=== PATIENT | female | born 1975 | race Caucasian/White ===

== ENCOUNTER → 2021-12-06 | Outpatient (CLI) | payer OTHER ==
[2021-12-07 09:11] LABS: HIV AB/P24 AG SCREEN Non Reactive (Non Reactive)
[2021-12-08 03:08] LABS: CHLAMYDIA TRACHOMATIS, NAA Negative (Negative)
== END | disposition home or self-care (01) ==
LOC: LAB 09:54 → LAB SHORT 09:54
PROVIDERS: Physician Assistant Surgical
DX: Z72.51 High risk heterosexual behavior (principal)
CPT/HCPCS: 86592; 87070; 87205; 87389; 87491; 87591

== ENCOUNTER 2022-03-26 02:44 | Emergency (ER) | payer OTHER ==
[~2022-03-26] VITALS: Ht 177.8 cm; Wt 113.4 kg
[2022-03-26] MEDS ORDERED: NAPROXEN250 M1 PO (03:38)
== END 2022-03-26 03:42 | disposition home or self-care (01) ==
LOC: ER 02:44
DX: M25.511 Pain in right shoulder (principal); Z88.0 Allergy status to penicillin; Z88.5 Allergy status to narcotic agent
CPT/HCPCS: 73030; A9270; J1885

== ENCOUNTER 2022-04-16 10:14 | Emergency (ER) | payer OTHER ==
[~2022-04-16] VITALS: Ht 157.5 cm; Wt 111.1 kg
[~2022-04-16 10:14] MED LIST: NAPROXEN250 M1 PO
[2022-04-16 11:26] LABS: BASOPHILS ABSOLUTE AUTO 0.04 K/mm3 (0.00-0.23); BASOPHILS PERCENT AUTO 0 % (0-2); EOSINOPHILS ABSOLUTE AUTO 0.17 K/mm3 (0.00-0.68); EOSINOPHILS PERCENT AUTO 2 % (0-6); Hematocrit 40.1 % (33.0-51.0); Hemoglobin 12.5 g/dL (11.5-16.0); IMMATURE GRAN ABSOLUTE AUTO 0.03 K/mm3 (0.00-0.10); IMMATURE GRAN PERCENT AUTO 0 % (0-1); LYMPHOCYTES ABSOLUTE AUTO 2.31 K/mm3 (0.84-5.20); LYMPHOCYTES PERCENT AUTO 25 % (21-46); MONOCYTES ABSOLUTE AUTO 0.55 K/mm3 (0.16-1.47); MONOCYTES PERCENT AUTO 6 % (4-13); Mean Corpuscular HGB Conc 31.2 g/dL (31.5-36.5); Mean Corpuscular Volume 83 fL (80-100); Mean Platelet Volume 10.5 fL (9.1-12.4); NEUTROPHILS ABSOLUTE AUTO 6.28 K/mm3 (1.96-9.15); NEUTROPHILS PERCENT AUTO 67 % (41-73); Platelet Count 312 K/mm3 (150-400); RDW Coefficient Variation 15.4 % (11.7-14.2); RDW Standard Deviation 46.9 fL (35.1-46.3); Red Blood Cell Count 4.81 M/mm3 (3.80-5.20); White Blood Cell Count 9.38 K/mm3 (4.00-11.30)
[2022-04-16 11:41] LABS: Albumin, Blood 3.1 g/dL (3.4-5.0); Albumin/Globulin Ratio 0.7 (0.8-1.8); Bilirubin, Total 0.3 mg/dL (0.1-1.0); Calcium, Blood 8.9 mg/dL (8.5-10.1); Creatinine, Blood 0.77 mg/dL (0.40-1.00); Globulin, Blood 4.6 g/dL (2.2-4.0); Potassium, Blood 4.3 mmol/L (3.5-5.5); Total Protein, Blood 7.7 g/dL (6.4-8.2)
[2022-04-16 13:19] LABS: Base Excess Venous 0.9 mmol/L; Bicarbonate Venous 24.7 mmol/L (24.0-30.0); pH Blood Venous 7.36 (7.34-7.37)
[2022-04-16 13:21] LABS: Source, Urine Clean Catch
[2022-04-16 13:23] LABS: Appearance, Urine Cloudy (Clear); Bilirubin, Urine Neg (Neg); Blood, Urine 4+ (Neg); Color, Urine Yellow (P-Yellow); Glucose Qualitative, Urine Neg (Neg); Ketones, Urine Neg (Neg); Leukocyte Esterase, Urine Neg (Neg); Nitrite, Urine Neg (Neg); Protein, Urine Neg (Neg); Specific Gravity, Urine 1.025 (1.003-1.022); Urobilinogen, Urine NORM (Normal)
[2022-04-16 13:33] LABS: Bacteria Mod /hpf; Red Blood Cells, Urine 0-2 /hpf (0-2); Squamous Epithelial Cells Many /hpf (Few); White Blood Cells, Urine 0-2 /hpf (0-5)
[2022-04-16 13:33] LABS: Influenza A, PCR NEGATIVE (NEGATIVE); Influenza B, PCR NEGATIVE (NEGATIVE); Resp Syncytial Virus, PCR NEGATIVE (NEGATIVE); SARS-Cov-2 (COVID-19) PCR, MMC NEGATIVE (NEGATIVE)
[2022-04-16 13:34] LABS: Mucus Heavy (0-Heavy)
[2022-04-16 13:36] LABS: Calcium Oxalate Crystals Rare /hpf
== END 2022-04-16 14:46 | disposition home or self-care (01) ==
LOC: ER 10:14
PROVIDERS: Physician Assistant; Student in an Organized Health Care Education/Training Program
DX: E86.0 Dehydration (principal); T73.3XXA Exhaustion due to excessive exertion, initial encounter; R51.9 Headache, unspecified; Z88.0 Allergy status to penicillin; Z88.5 Allergy status to narcotic agent; Z20.822 Contact with and (suspected) exposure to COVID-19
CPT/HCPCS: 0241U; 36415; 71046; 80053; 81001; 82375; 82803; 83880; 84484; 85025; 93005; 93010; J1885; J2765; J7030